=== PATIENT | male | born 1955 | race African-American/Black ===

== ENCOUNTER 2020-01-04 16:15 | Inpatient (IN) | payer MEDICARE, OTHER ==
[~2020-01-04] VITALS: Ht 180.3 cm; Wt 73.0 kg
--- NOTE | 2020-01-04 16:44 | NUR ---
Medically cleared by our ER Dr Mcgarry. Patient is resting comfortably on gurney with eyes closed. PATIENT IS PAIN FREE AT THIS TIME. Patient is waiting for MHU charger operator's callback for assigned nurse.
[2020-01-04] MEDS ORDERED: ACETAMINOPHEN 325 MG TABLET PO PRN (17:15)
[2020-01-04] MEDS ORDERED: TEMAZEPAM 7.5 MG CAPSULE PO PRN (17:15)
[2020-01-04] MEDS ORDERED: CLONAZEPAM 0.5 MG TABLET PO SCH (17:15)
[2020-01-04] MEDS ORDERED: MAGNESIUM HYDROXIDE 30 ML LIQUID UDC PO PRN (17:15)
[2020-01-04] MEDS ORDERED: MAG HYDROX/AL HYDROX/SIMETH 30 ML LIQUID UDC PO PRN (17:15)
[2020-01-04 17:45] VITALS: BP 149/72
--- NOTE | 2020-01-04 17:45 | NUR ---
GPS: Nursing Notes: Admitting Notes: Admitted to MHU on 5150 DTS due to patient stating "I want to kill myself by running into traffic..", per 5150 history of previous suicidal attempts. On face to face assessment, patient is awake and responding to his name, cooperative with staff, depressed mood and anxious affect, A/Ox4, malodorous, unkempt appearance, stated "Yes, I want to kill myself by running into traffic..", "I want to kill some people in [facility] because they use me.. They lie to me..", "I have no place to go that is the reason I want to ...", oriented to the MHU unit and admitting package given to patient, unable to formulate a viable plan for self care, Dr. Elam and Dr. Balbuena informed of admission by charge nurse.
[2020-01-04 20:11] VITALS: BP_SYST 125; BP_SYST 127; BP_DIAS 75; BP_DIAS 88
--- NOTE | 2020-01-05 03:50 | NUR ---
GPS: Pt. new admit from previous shift. Pt. on 72/hr hold due to suicidal threat of running into traffic per admission note. Pt exhibited flat effect at times but respond when requested. No anxiety noted, cooperative with nursing staffs. Pt. c/o unable to sleep and PRN Restoril was administered by 2100. Pt noted asleep with even breathing s/p med. By 0300 pt was up sitting by bedside awake, no behavior noted. Will continue monitor and remind of safety.
--- NOTE | 2020-01-05 06:51 | NUR ---
Pt. slept total of 6.15min during shift, with prn. Awake and took shower, cooperative and resting in bed.
[2020-01-05 07:16] LABS: BILIRUBIN,TOTAL 0.3 mg/dL (0.2-1.0); CREATININE 1.3 mg/dL (0.6-1.3); POTASSIUM 4.4 mmol/L (3.5-5.1); TOTAL PROTEIN, SERUM 8.5 g/dL (6.4-8.2)
[2020-01-05 07:30] VITALS: BP 140/96
[2020-01-05] MEDS: DIVALPROEX 500 MG TABLET.DR PO SCH ×2 (10:43→20:11)
[2020-01-05] MEDS: OLANZAPINE ZYDIS 5 MG TAB.RAPDIS PO SCH ×2 (10:43→20:11)
[2020-01-05] MEDS: HYDROCODONE/APAP 5-325MG TABLET PO PRN (15:59)
[2020-01-05] MEDS: CLONAZEPAM 0.5 MG TABLET PO PRN (16:04)
[2020-01-05 17:01] VITALS: BP 117/83
[2020-01-05 20:49] VITALS: BP 127/74
[2020-01-06 07:30] VITALS: BP 111/76
[2020-01-06] MEDS: AMLODIPINE 5 MG TABLET PO SCH (08:40)
[2020-01-06] MEDS: OLANZAPINE ZYDIS 5 MG TAB.RAPDIS PO SCH ×2 (08:40→20:37)
[2020-01-06] MEDS: BENAZEPRIL HCL 10 MG TABLET PO SCH (08:40)
[2020-01-06] MEDS: DIVALPROEX 500 MG TABLET.DR PO SCH ×2 (08:40→20:37)
[2020-01-06] MEDS ORDERED: BENAZEPRIL HCL 20 MG TABLET PO SCH (09:00)
[2020-01-06] MEDS: HYDROCODONE/APAP 5-325MG TABLET PO PRN (11:44)
[2020-01-06 15:07] VITALS: BP 95/56
--- NOTE | 2020-01-06 17:05 | NUR ---
Initial Discharge Plan: Pt states he is homeless and lives on the streets in [place], [place]. 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 SW will work with pt, pts medical case worker at [facility] [[facility]; [phone]], and MD to form a safe and proper discharge.
--- NOTE | 2020-01-06 17:10 | NUR ---
Lime Slaker Family Contact: Per pt, his person to notify is Rony, his child welfare caseworker at [facility] [[address] [place] [id number]; [phone]]. ELI called Rony and left her a voice mail with call back number. ELI will call again at a later time.
--- NOTE | 2020-01-06 17:37 | NUR ---
Dev Ops Engineer Family Contact: SW spoke with pts person to notify, Rony, his case maker at [facility] [[address] [place] [address], [place] [address]; [phone]]. Rony states she is able to facilitate mental health services for pt when pt is ready for discharge. Rony states they have a psychiatrist on staff that pt can see after discharge for continuation of care.
[2020-01-06 20:31] VITALS: BP 92/52
--- NOTE | 2020-01-06 23:43 | NUR ---
RECEIVED PATIENT IN HIS ROOM AWAKE. MOOD APPEARED LOW AND DEPRESSED.REMAINS WITHDRAWN AND GUARDED. HOWEVER DENIES SI/HI.COMPLIANT WITH HIS MEDICATION. VISUAL CHECKS MADE ON HIM.SAFE ENVIRONMENT PROVIDED.WILL CONTINUE TO MONITOR.
[2020-01-07 07:30] VITALS: BP 108/67
[2020-01-07] MEDS: DIVALPROEX 500 MG TABLET.DR PO SCH ×2 (08:38→20:08)
[2020-01-07] MEDS: OLANZAPINE ZYDIS 5 MG TAB.RAPDIS PO SCH ×2 (08:39→20:08)
[2020-01-07] MEDS: AMLODIPINE 5 MG TABLET PO SCH (08:39)
[2020-01-07] MEDS: BENAZEPRIL HCL 10 MG TABLET PO SCH (08:40)
[2020-01-07] MEDS: [UNRECOGNIZED DRUG - OTHER] LEFTEYE SCH (10:35)
[2020-01-07] MEDS: HYDROCODONE/APAP 5-325MG TABLET PO PRN ×2 (10:36→22:59)
--- NOTE | 2020-01-07 12:38 | NUR ---
GPS: Nursing Notes: Destructive Behavior to Self: Patient awake and responding to his name, cooperative with nursing care, compliant with his medications, A/Ox4, verbally andrea for safety, needs prompting to participate in therapeutic groups, isolative and withdrawn in his room at times, depressed mood, low energy level, unable to formulate a viable plan for self care, continue to monitor for safety, continue with treatment plan.
[2020-01-07 15:58] VITALS: BP 122/65
[2020-01-07] MEDS ORDERED: LORAZEPAM 2 MG/1 ML VIAL IM ONE (19:15)
[2020-01-07] MEDS ORDERED: diphenhydrAMINE 50 MG/1 ML VIAL IM ONE (19:15)
[2020-01-07] MEDS ORDERED: HALOPERIDOL LACTATE 5 MG/1 ML VIAL IM ONE (19:15)
[2020-01-07] MEDS: CLONAZEPAM 0.5 MG TABLET PO PRN (19:39)
--- NOTE | 2020-01-07 19:50 | NUR ---
GPS: Pt.is calm,cooperative,apologetic,and no longer agitated/out of control. Contracts for safety and no longer exhibiting out of control behavior. Dr. Elam made aware with orders to cancel emergency IM's ordered x1. Orders carried-out. Klonopin 0.5mg given at this time. Snacks given and lawrence.well. Counseled for poor impulse control.
[2020-01-07 20:21] VITALS: BP 144/96
--- NOTE | 2020-01-08 06:16 | NUR ---
GPS: Pt.refused blood drawing scheduled this am despite explanation of importance. Will endorse to incoming nurse.
[2020-01-08 07:30] VITALS: BP 119/74
[2020-01-08] MEDS: OLANZAPINE ZYDIS 5 MG TAB.RAPDIS PO SCH ×2 (08:09→20:42)
[2020-01-08] MEDS: DIVALPROEX 500 MG TABLET.DR PO SCH ×2 (08:09→20:42)
[2020-01-08] MEDS: [UNRECOGNIZED DRUG - OTHER] LEFTEYE SCH (08:12)
[2020-01-08] MEDS: AMLODIPINE 5 MG TABLET PO SCH (09:00)
[2020-01-08] MEDS: BENAZEPRIL HCL 10 MG TABLET PO SCH (09:00)
[2020-01-08] MEDS: HYDROCODONE/APAP 5-325MG TABLET PO PRN ×2 (10:21→20:43)
--- NOTE | 2020-01-08 11:20 | NUR ---
Social Work Coordination of Care: concrete worker faxed patient's clinicals to [facility] to [facility] admin ([phone]) and is waiting for [facility] to review clinicals.
--- NOTE | 2020-01-08 14:43 | NUR ---
Social Work Individual Therapy: beater worker helper met with patient for brief counseling. beater worker helper assessed for patients level of suicidality. Patient denies SI. Patient stated that his "life is too sandeep". This insurance underwriter sales provided mental health referrals to patient such as [facility] Crisis Line ( ), [place] Suicide Prevention Lifeline ( ) , [facility] Substance Abuse Helpline ( ). beater worker helper encouraged patient to contact either family, hotline, or a professional if patient were to have suicidal thoughts. This insurance underwriter sales also encouraged patient to alert either this insurance underwriter sales or the nursing staff.
[2020-01-08] MEDS ORDERED: HALOPERIDOL LACTATE 5 MG/1 ML VIAL IM ONE (15:30)
[2020-01-08] MEDS ORDERED: diphenhydrAMINE 50 MG/1 ML VIAL IM ONE (15:30)
[2020-01-08] MEDS ORDERED: LORAZEPAM 2 MG/1 ML VIAL IM ONE (15:30)
--- NOTE | 2020-01-08 15:59 | NUR ---
patient attack blasting cap assembler, throw towels to SITE SAFETY MANAGER, patient yelling and screaming at the nursing station, patient paranoid and delusional at this time, patient aggresive towards other staff too, called and spoke with Dr. Elam, PRN meds given as ordered , will continue monitor patient
--- NOTE | 2020-01-08 16:33 | NUR ---
Social Work Note: Patient has been verbally abusive towards the nursing staff and has been using inappropriate language. Patient is stating racial comments towards the nursing staff especially towards charge nurse Bridger.
[2020-01-08 20:53] VITALS: BP 103/70
--- NOTE | 2020-01-08 22:30 | NUR ---
received to care, sitting by self, watching tv. pleasant upon approach. no aggression noted. compliant with medications, and staff direction. PRN norco was given at 2042, for lower back pain. pt reported good relief, by 2129. as of 2229, he appears to be asleep. no distress noted. will continue to monitor closely.
--- NOTE | 2020-01-09 06:00 | NUR ---
slept fairly well. continues to sleep. no distress noted.
[2020-01-09 07:30] VITALS: BP 142/89
[2020-01-09] MEDS: [UNRECOGNIZED DRUG - OTHER] LEFTEYE SCH (09:19)
[2020-01-09] MEDS: BENAZEPRIL HCL 10 MG TABLET PO SCH (09:20)
[2020-01-09] MEDS: DIVALPROEX 500 MG TABLET.DR PO SCH ×2 (09:20→21:51)
[2020-01-09] MEDS: AMLODIPINE 5 MG TABLET PO SCH (09:21)
[2020-01-09] MEDS: OLANZAPINE ZYDIS 5 MG TAB.RAPDIS PO SCH ×2 (09:22→21:51)
[2020-01-09] MEDS: HYDROCODONE/APAP 5-325MG TABLET PO PRN (10:32)
[2020-01-09 16:00] VITALS: BP 96/64
[2020-01-09 20:00] VITALS: BP 86/56
[2020-01-09 21:52] VITALS: BP 112/57
--- NOTE | 2020-01-09 23:30 | NUR ---
GPS: Pt. received in room lying in bed, pt. was noted alert and awake but a little bit sluggish and blood pressure a bit lower than parameter 86/56 and endorsement received pt BP was low during day shift too. Offer fluid and rechecked with noted increase at 112/57. Pt. ambulate within hallway and no behavior noted, calm but sad looking. Pt routine meds given as order. Will continue monitor pt.
[2020-01-10] MEDS: HYDROCODONE/APAP 5-325MG TABLET PO PRN ×2 (04:40→22:24)
--- NOTE | 2020-01-10 06:49 | NUR ---
Pt slept during night about 3.15min. Pt seem to be more guarded and anxious. PRN pain medication was effective. Pt awake in bed.
[2020-01-10 07:30] VITALS: BP 124/78
[2020-01-10] MEDS: OLANZAPINE ZYDIS 5 MG TAB.RAPDIS PO SCH ×2 (09:26→20:32)
[2020-01-10] MEDS: AMLODIPINE 5 MG TABLET PO SCH (09:26)
[2020-01-10] MEDS: [UNRECOGNIZED DRUG - OTHER] LEFTEYE SCH (09:26)
[2020-01-10] MEDS: DIVALPROEX 500 MG TABLET.DR PO SCH ×2 (09:26→20:32)
[2020-01-10] MEDS: BENAZEPRIL HCL 10 MG TABLET PO SCH (09:27)
--- NOTE | 2020-01-10 09:51 | NUR ---
Social Work Discharge Plan: Evan Rojas admin ([phone]) stated that patient is accepted to [facility].
--- NOTE | 2020-01-10 14:50 | NUR ---
Social Work Individual Therapy: food preparation worker met with patient for brief counseling. food preparation worker assessed for patients level of suicidality. Patient denies SI. Patient is able to have a meaningful conversation with this securities underwriter. Patient stated that he wants to get better and stated that "he feels that he sees a difference". This securities underwriter provided mental health referrals to patient such as [facility] Crisis Line ( ), [place] Suicide Prevention Lifeline ( ) , [facility] Substance Abuse Helpline ( ). food preparation worker encouraged patient to contact either family, hotline, or a professional if patient were to have suicidal thoughts. This securities underwriter also encouraged patient to alert either this securities underwriter or the nursing staff.
[2020-01-10 15:17] VITALS: BP 132/72
--- NOTE | 2020-01-10 15:35 | NUR ---
Social Work Firearms Report: Hardwood Finisher completed and submitted a [employer] firearms report for 5250 grave disability certification. A copy of report has been placed in patient chart.
[2020-01-10 21:11] VITALS: BP 111/74
--- NOTE | 2020-01-10 23:00 | NUR ---
received to care, highly visible on unit, watching tv, pleasant and appropriate, upon approach. compliant with medications and staff direction. PRN norco was given at 2223, for lower back pain. as of 2299, he appears to be asleep. no distress noted. will continue to monitor closely.
--- NOTE | 2020-01-11 06:00 | NUR ---
slept fairly well. continues to sleep. no distress noted.
[2020-01-11 07:30] VITALS: BP 115/68
[2020-01-11] MEDS: DIVALPROEX 500 MG TABLET.DR PO SCH ×2 (08:25→20:59)
[2020-01-11] MEDS: AMLODIPINE 5 MG TABLET PO SCH (08:26)
[2020-01-11] MEDS: OLANZAPINE ZYDIS 5 MG TAB.RAPDIS PO SCH ×2 (08:26→21:00)
[2020-01-11] MEDS: [UNRECOGNIZED DRUG - OTHER] LEFTEYE SCH (08:28)
[2020-01-11] MEDS: BENAZEPRIL HCL 10 MG TABLET PO SCH (08:29)
--- NOTE | 2020-01-11 15:00 | NUR ---
resting well. and out of room , prn for food, water of med.
[2020-01-11 15:22] VITALS: BP 80/58
[2020-01-11] MEDS: HYDROCODONE/APAP 5-325MG TABLET PO PRN (15:28)
--- NOTE | 2020-01-11 18:20 | NUR ---
resting well. cooperative with care, compliant with food and meds, nursing care
[2020-01-11 20:00] VITALS: BP 118/70
--- NOTE | 2020-01-11 21:48 | NUR ---
GPS: Pt received resting in bed, alert and respond to name but denied his first name tonight when approach to give medications and called him Bony. He said my name is not Bony is Steven!. Agreed with pt to call him Steven. Cooperative with routine meds. No other behavior noted, will continue to monitor..
--- NOTE | 2020-01-12 06:50 | NUR ---
Pt awake and walking on hallway now, slept for 7.0hrs during night. no c/o pain during shift, one episode of awareness noted during the night and asked for food. continue monitor.
[2020-01-12 07:30] VITALS: BP 147/84
[2020-01-12] MEDS: DIVALPROEX 500 MG TABLET.DR PO SCH ×2 (08:36→20:26)
[2020-01-12] MEDS: OLANZAPINE ZYDIS 5 MG TAB.RAPDIS PO SCH ×2 (08:36→20:26)
[2020-01-12] MEDS: AMLODIPINE 5 MG TABLET PO SCH (08:36)
[2020-01-12] MEDS: BENAZEPRIL HCL 10 MG TABLET PO SCH (08:37)
[2020-01-12] MEDS: [UNRECOGNIZED DRUG - OTHER] LEFTEYE SCH (08:38)
[2020-01-12 16:00] VITALS: BP 99/51
[2020-01-12] MEDS: HYDROCODONE/APAP 5-325MG TABLET PO PRN (16:34)
--- NOTE | 2020-01-12 16:36 | NUR ---
C/O HAVING GENERALISED PAIN INCLUDING HIS BACK MEDICATED WITH NORCO ORDERED MADE COMFORTABLE WILL CONTINUE TO OBSERVE AND PROVIDE COMFORT.
--- NOTE | 2020-01-12 18:00 | NUR ---
AWAKE ALERT AND ORIENTED HE IS COMPLIANT WITH MEDICATIONS AND CARE AMBULATORY TO DESIRED DESTINATIONS MADE COMFORTABLE WILL CONTINUE TO OBSERVE.
[2020-01-12 20:25] VITALS: BP 113/67
--- NOTE | 2020-01-12 22:30 | NUR ---
received to care, visible on unit, watching tv, pleasant, upon approach. compliant with medications and staff direction. as of 2229, he appears to be asleep. no distress noted. will continue to monitor closely.
--- NOTE | 2020-01-13 06:00 | NUR ---
slept 5.75 hours, total. continues to sleep. no distress noted.
[2020-01-13] MEDS: HYDROCODONE/APAP 5-325MG TABLET PO PRN ×2 (06:44→12:52)
[2020-01-13 07:30] VITALS: BP 123/75
--- NOTE | 2020-01-13 08:25 | NUR ---
Social Work Discharge Note: Patient will be discharged to halfway facility to [address] [address]; ) via Ambulance transportation at 1PM. Bingo Worker spoke with Crystal, Channel Turner at [facility]; ([phone])), who stated patient will be accepted at facility today. Patient is alert and oriented x3-4, and is not able to plan for self-care at this time, but is willing to accept care provided for him at the facility. Patient denies any suicidal or homicidal ideations. Patient is aware and agreeable with discharge plans. Patient does not have any family members at this moment. Patient will continue to follow-up with her (Psychiatrist) Dr. Elam and (Vp Organizational Development) Dr. Greenberg at [address] [address]; ) and will discuss smoking cessation and address substance abuse dependency. Patient was provided with outpatient mental health resources to [facility] Crisis Line , and the National Suicide Prevention Lifeline . Patient signed the homeless patient waiver form. Patient was provided with additional resources such as the homeless fpc packet, which includes a list of emergency shelters, housing resources, drop in centers, and showers/hot meals centers. This also included the Homeless Information Hotline (109)-946-3924 or 211, [place] for [employer] , and the [facility] ([phone]. Patient was provided with a brief substance abuse intervention and referred to [facility] , [facility] , and [facility] . Patient will follow-up at the center. .Patient was provided with outpatient mental health resources to [facility] Crisis Line , and the National Suicide Prevention Lifeline . Patient presents with euthymic mood and congruent affect.
--- NOTE | 2020-01-13 08:42 | NUR ---
Social Work Substance Abuse Intervention: Patient was provided with a brief substance abuse intervention and referred to [facility] ([phone]), [facility] ([phone]), and [facility] ([phone]).
[2020-01-13] MEDS: OLANZAPINE ZYDIS 5 MG TAB.RAPDIS PO SCH (09:10)
[2020-01-13 09:11] VITALS: BP 123/75
[2020-01-13] MEDS: BENAZEPRIL HCL 10 MG TABLET PO SCH (09:11)
[2020-01-13] MEDS: DIVALPROEX 500 MG TABLET.DR PO SCH (09:11)
[2020-01-13] MEDS: AMLODIPINE 5 MG TABLET PO SCH (09:11)
[2020-01-13] MEDS: [UNRECOGNIZED DRUG - OTHER] LEFTEYE SCH (09:12)
--- NOTE | 2020-01-13 17:30 | NUR ---
GPS: Nursing Notes: Discharge Notes: Patient is awake and responding to his name, cooperative with nursing care, compliant with his medications, following staff directions, denies any SI/HI, denies any AH/VH, denies any pain or discomfort, denies any SOB, discharge to [facility] at [address], [place] [id number] , report given to Day RN telesales supervisor, took all his belongings with him, transported via ambulance. Patient will continue to follow-up with her (Psychiatrist) Dr. Elam and (Statistical Machine Mechanic) Dr. Greenberg at [address] [address]; ) and will discuss smoking cessation and address substance abuse dependency. Patient was provided with outpatient mental health resources to [facility] Crisis Line , and the National Suicide Prevention Lifeline . Patient signed the homeless patient waiver form. Patient was provided with additional resources such as the homeless nursing home packet, which includes a list of emergency shelters, housing resources, drop in centers, and showers/hot meals centers. This also included the Homeless Information Hotline (910)-910-3696 or 211, [place] for [employer] (214)- 170-5676, and the [facility] ([phone]. Patient was provided with a brief substance abuse intervention and referred to [facility] , [facility] , and [facility] . Patient will follow-up at the center. .Patient was provided with outpatient mental health resources to [facility] Crisis Line , and the National Suicide Prevention Lifeline .
== END 2020-01-13 17:30 | DRG 885 ==
LOC: EDBD 16:18 → ER 16:18 → GPS 17:00
PROVIDERS: ADMIT Psychiatry & Neurology Psychiatry; ATTEND Hospitalist
DX: F31.60 Bipolar disorder, current episode mixed, unspecified (principal); E44.1 Mild protein-calorie malnutrition; R45.851 Suicidal ideations; F23 Brief psychotic disorder; Z59.0 Homelessness; F12.10 Cannabis abuse, uncomplicated; M54.5 Low back pain; I10 Essential (primary) hypertension; H40.9 Unspecified glaucoma; F41.9 Anxiety disorder, unspecified; E88.09 Other disorders of plasma-protein metabolism, not elsewhere classified; Z68.22 Body mass index [BMI] 22.0-22.9, adult
CPT/HCPCS: 36415; J1200; J1630; J2060

== ENCOUNTER 2021-07-30 11:11 | Inpatient (IN) | payer OTHER ==
[~2021-07-30] VITALS: Ht 177.8 cm; Wt 70.8 kg
[~2021-07-30 11:11] MED LIST: AMLO-212 PO; BENA20TA9 PO; HYDR-3980 PO
[2021-07-30] MEDS ORDERED: AMLO2.5T4 PO (11:33)
[2021-07-30] MEDS ORDERED: BIMA2.5D5 EACHEYE (11:33)
[2021-07-30] MEDS ORDERED: BENA20TA9 PO (11:33)
[2021-07-30] MEDS ORDERED: ATEN50TA PO (11:33)
[2021-07-30 12:08] LABS: HEMATOCRIT 35.6 % (36.7-47.1); MEAN CORPUSCULAR VOLUME 91.5 fL (73.0-96.2); PLATELET COUNT (AUTO) 229 K/uL (152-348)
[2021-07-30 12:12] LABS: CARBON DIOXIDE 30 mmol/L (21-32); CHLORIDE 106 mmol/L (98-107); CREATININE 1.2 mg/dL (0.6-1.3); GLUCOSE 119 mg/dL (74-106); POTASSIUM 5.1 mmol/L (3.5-5.1); UREA NITROGEN, BLOOD 20 mg/dL (7-18)
[2021-07-30 12:13] LABS: *BILIRUBIN,URIN NEGATIVE (NEGATIVE); *BLOOD, URINE NEGATIVE (NEGATIVE); *CLARITY,URINE CLEAR (CLEAR); *COLOR,URINE YELLOW (YELLOW); *KETONES,URINE NEGATIVE (NEGATIVE); *UROBILINOGEN,URINE 0.2 E.U./dl (NORMAL); LEUKOCYTE ESTERASE ,URINE NEGATIVE (NEGATIVE); NITRITE, URINE NEGATIVE (NEGATIVE); UGLUCOSE NEGATIVE (NEGATIVE)
[2021-07-30 12:18] LABS: ACETAMINOPHEN < 2.0 ug/mL (10-30); ALANINE AMINOTRANSFERASE 40 U/L (16-63); ALKALINE PHOSPHATASE 80 U/L (50-136); ASPARTATE AMINOTRANSFERASE 34 U/L (15-37); BILIRUBIN,DIRECT 0.1 mg/dL (0.0-0.2); BILIRUBIN,TOTAL 0.3 mg/dL (0.2-1.0); TOTAL PROTEIN, SERUM 7.4 g/dL (6.4-8.2)
[2021-07-30 12:19] LABS: ETHANOL < 3 MG/DL (0-0)
[2021-07-30 12:24] LABS: *AMPHETAMINE, URINE NEGATIVE (NEGATIVE); *CANNABINOID, URINE POSITIVE (NEGATIVE); *COCCAINE, URINE NEGATIVE (NEGATIVE); *OPIATE, URINE NEGATIVE (NEGATIVE); *PHENCYCLIDINE SCREEN,URINE NEGATIVE (NEGATIVE)
[2021-07-30 15:15] VITALS: BP 145/91
[2021-07-30] MEDS ORDERED: MAG HYDROX/AL HYDROX/SIMETH 30 ML LIQUID UDC PO PRN (18:00)
[2021-07-30] MEDS ORDERED: ACETAMINOPHEN 325 MG TABLET PO PRN (19:30)
[2021-07-30] MEDS ORDERED: LORAZEPAM 0.5 MG TABLET PO PRN (19:30)
[2021-07-30] MEDS ORDERED: MAGNESIUM HYDROXIDE 30 ML LIQUID UDC PO PRN (19:30)
[2021-07-30 20:09] VITALS: BP 113/59
[2021-07-30] MEDS: LATANOPROST OPHT DROP 2.5 ML BOTTLE OP SCH (20:33)
[2021-07-30] MEDS: HYDROCODONE/APAP 10-325 MG TABLET PO PRN (20:34)
[2021-07-30] MEDS ORDERED: BIMATOPROST 0.01% OPHT DROP 2.5 ML BOTTLE EACHEYE SCH (21:00)
[2021-07-30] MEDS: ZOLPIDEM 5 MG TABLET PO PRN (23:25)
[2021-07-31 07:46] VITALS: BP 144/86
[2021-07-31 08:28] LABS: BILIRUBIN,TOTAL 0.3 mg/dL (0.2-1.0); CREATININE 1.3 mg/dL (0.6-1.3); POTASSIUM 4.9 mmol/L (3.5-5.1); TOTAL PROTEIN, SERUM 7.1 g/dL (6.4-8.2)
[2021-07-31] MEDS: BENAZEPRIL HCL 20 MG TABLET PO SCH (08:34)
[2021-07-31] MEDS: AMLODIPINE 5 MG TABLET PO SCH (08:34)
[2021-07-31] MEDS: ATENOLOL 50 MG TABLET PO SCH (08:35)
[2021-07-31] MEDS ORDERED: AMLODIPINE 2.5 MG TABLET PO SCH (09:00)
[2021-07-31] MEDS: DIVALPROEX 500 MG TABLET.DR PO SCH ×2 (11:57→20:49)
[2021-07-31] MEDS ORDERED: DEXTROSE 50% 50 ML DISP.SYRIN IV PRN (13:45)
[2021-07-31] MEDS ORDERED: INSULIN REGULAR, HUMAN 300 UNIT/3 ML VIAL SQ PRN (13:45)
[2021-07-31 16:18] VITALS: BP 91/54
[2021-07-31] MEDS: BLOOD SUGAR DIAGNOSTIC 1 EACH STRIP VI SCH ×2 (16:45→20:49)
[2021-07-31] MEDS: OLANZAPINE 5 MG TABLET PO SCH (16:50)
[2021-07-31 20:18] VITALS: BP 104/68
[2021-07-31] MEDS: HYDROCODONE/APAP 10-325 MG TABLET PO PRN (20:50)
[2021-07-31] MEDS: LATANOPROST OPHT DROP 2.5 ML BOTTLE OP SCH (20:54)
[2021-07-31] MEDS: LORAZEPAM 1 MG TABLET PO PRN (23:34)
[2021-08-01] MEDS: ZOLPIDEM 5 MG TABLET PO PRN ×2 (01:01→22:53)
[2021-08-01] MEDS: BLOOD SUGAR DIAGNOSTIC 1 EACH STRIP VI SCH ×5 (06:25→20:09)
[2021-08-01 08:04] VITALS: BP 117/70
[2021-08-01] MEDS: OLANZAPINE 5 MG TABLET PO SCH ×2 (08:31→17:30)
[2021-08-01] MEDS: DIVALPROEX 500 MG TABLET.DR PO SCH ×2 (08:32→20:06)
[2021-08-01] MEDS: BENAZEPRIL HCL 20 MG TABLET PO SCH (08:32)
[2021-08-01] MEDS: AMLODIPINE 5 MG TABLET PO SCH (08:32)
[2021-08-01] MEDS: ATENOLOL 50 MG TABLET PO SCH (08:33)
[2021-08-01 16:49] VITALS: BP 99/67
[2021-08-01] MEDS: LATANOPROST OPHT DROP 2.5 ML BOTTLE OP SCH (20:07)
[2021-08-01 20:16] VITALS: BP 111/64
[2021-08-02] MEDS: BLOOD SUGAR DIAGNOSTIC 1 EACH STRIP VI SCH ×4 (06:10→20:45)
[2021-08-02 07:51] VITALS: BP 104/74
[2021-08-02] MEDS: OLANZAPINE 5 MG TABLET PO SCH ×2 (09:44→17:07)
[2021-08-02] MEDS: DIVALPROEX 500 MG TABLET.DR PO SCH ×2 (09:44→21:37)
[2021-08-02] MEDS: AMLODIPINE 5 MG TABLET PO SCH (09:44)
[2021-08-02] MEDS: ATENOLOL 50 MG TABLET PO SCH (09:45)
[2021-08-02] MEDS: BENAZEPRIL HCL 20 MG TABLET PO SCH (09:45)
[2021-08-02 15:54] VITALS: BP 95/55
[2021-08-02] MEDS: LATANOPROST OPHT DROP 2.5 ML BOTTLE OP SCH (20:45)
[2021-08-02 21:05] VITALS: BP 92/58
[2021-08-02] MEDS: ZOLPIDEM 5 MG TABLET PO PRN (22:41)
[2021-08-03] MEDS: BLOOD SUGAR DIAGNOSTIC 1 EACH STRIP VI SCH ×3 (06:15→16:30)
[2021-08-03 08:00] VITALS: BP 110/69
[2021-08-03] MEDS: DIVALPROEX 500 MG TABLET.DR PO SCH ×2 (08:16→20:38)
[2021-08-03] MEDS: ATENOLOL 50 MG TABLET PO SCH (08:16)
[2021-08-03] MEDS: OLANZAPINE 5 MG TABLET PO SCH ×2 (08:16→16:56)
[2021-08-03] MEDS: AMLODIPINE 5 MG TABLET PO SCH (08:16)
[2021-08-03] MEDS: BENAZEPRIL HCL 20 MG TABLET PO SCH (08:17)
[2021-08-03] MEDS ORDERED: diphenhydrAMINE 50 MG CAPSULE PO PRN (08:45)
[2021-08-03 16:00] VITALS: BP 110/59
[2021-08-03 20:11] VITALS: BP 100/56
[2021-08-03] MEDS: LATANOPROST OPHT DROP 2.5 ML BOTTLE OP SCH (20:39)
[2021-08-03] MEDS: HYDROCODONE/APAP 10-325 MG TABLET PO PRN (22:10)
[2021-08-04] MEDS: LORAZEPAM 1 MG TABLET PO PRN (00:32)
[2021-08-04 07:30] VITALS: BP 99/65
[2021-08-04] MEDS ORDERED: GLIMEPIRIDE 2 MG TABLET PO SCH (08:00)
[2021-08-04] MEDS ORDERED: diphenhydrAMINE 50 MG CAPSULE PO PRN (08:15)
[2021-08-04] MEDS ORDERED: diphenhydrAMINE 25 MG CAP PO PRN (08:30)
[2021-08-04] MEDS: ATENOLOL 50 MG TABLET PO SCH (09:00)
[2021-08-04] MEDS: AMLODIPINE 5 MG TABLET PO SCH (09:00)
[2021-08-04] MEDS: BENAZEPRIL HCL 20 MG TABLET PO SCH (09:00)
[2021-08-04] MEDS: OLANZAPINE 5 MG TABLET PO SCH ×2 (09:07→21:03)
[2021-08-04] MEDS: DIVALPROEX 500 MG TABLET.DR PO SCH ×2 (09:08→21:03)
[2021-08-04 16:00] VITALS: BP 102/68
[2021-08-04 20:00] VITALS: BP 123/72
[2021-08-04] MEDS: LATANOPROST OPHT DROP 2.5 ML BOTTLE OP SCH (21:00)
[2021-08-05 07:30] VITALS: BP 125/89
[2021-08-05] MEDS: DIVALPROEX 500 MG TABLET.DR PO SCH (08:34)
[2021-08-05] MEDS: OLANZAPINE 5 MG TABLET PO SCH (08:35)
[2021-08-05 08:39] VITALS: BP 125/89
[2021-08-05] MEDS: ATENOLOL 50 MG TABLET PO SCH (08:39)
== END 2021-08-05 13:00 | disposition home or self-care (01) | DRG 885 ==
LOC: ER 11:11 → GPS 14:57
PROVIDERS: ADMIT Psychiatry & Neurology Psychiatry; ATTEND Student in an Organized Health Care Education/Training Program
DX: F31.64 Bipolar disorder, current episode mixed, severe, with psychotic features (principal); E11.65 Type 2 diabetes mellitus with hyperglycemia; E44.1 Mild protein-calorie malnutrition; E86.0 Dehydration; H40.9 Unspecified glaucoma; D64.9 Anemia, unspecified; F12.10 Cannabis abuse, uncomplicated; F41.9 Anxiety disorder, unspecified; F90.9 Attention-deficit hyperactivity disorder, unspecified type; I10 Essential (primary) hypertension; Z59.00 Homelessness unspecified; M54.50 Low back pain, unspecified; Z68.22 Body mass index [BMI] 22.0-22.9, adult; Z20.822 Contact with and (suspected) exposure to COVID-19
CPT/HCPCS: 36415; 84443; 85025; 93005; A4663; G0480; J1815; Q0163